=== PATIENT | female | born 1990 | race Caucasian/White ===

== ENCOUNTER 2019-11-25 07:15 | Outpatient (CLI) | payer MEDICAID, SELFPAY ==
--- NOTE | 2019-11-25 14:59 | DI.US_ITS ---
EXAM: US OB 2-3 TRIMESTER CLINICAL HISTORY: Z34.82, SUPERVISION OF NORMAL . TECHNIQUE: Transabdominal obstetrical ultrasound performed. COMPARISON: US OB <14 WK W/TRANSVAG from 09/21/2019 FINDINGS: Transabdominal obstetrical ultrasound performed. FINDINGS: Number of fetuses: One. position: Variable heart rate: bpm. Placental grade: 2 Placental location: Posterior. No evidence of previa. Multiple venous lakes were observed. BIOMETRIC DATA: BPD: 40mm HC: 152mm AC: 126mm FL: 27mm Cisterna Magna: 3.1 mm Cerebellum: 1.86 cm EFW: 226 grms 37% Composite Age: 18+1 EDC by US: 04/26/2020 Heart Rate: 157BPM Amniotic fluid index: Amount of fluid is within normal limits. ANATOMICAL SURVEY: Four-chambered heart: Unremarkable. LVOT: Unremarkable. RVOT: Unremarkable. Left-sided stomach: Unremarkable. urinary bladder: Unremarkable. Bilateral kidneys: Unremarkable. Three-vessel cord: Unremarkable. Cord insertion: Unremarkable. Umbilical artery velocity: Unremarkable. Posterior fossa:Unremarkable. ventricles: Unremarkable. nose: Unremarkable. lips: Unremarkable. palate: Unremarkable. spine: Unremarkable. Two arms and two legs: Unremarkable. IMPRESSION: 1. Single live intrauterine gestation as above. 2. Normal anatomic survey. DATA REPOSITORY:
== END 2019-11-25 07:35 ==
PROVIDERS: PCP Family Medicine; Visit Provider Obstetrics & Gynecology
DX: Z34.92 Encounter for supervision of normal pregnancy, unspecified, second trimester (principal)
CPT/HCPCS: 76805